=== PATIENT | male | born 1965 | race Caucasian/White ===

== ENCOUNTER 2017-02-02 08:55 | Emergency (ER) | payer MEDICAID ==
[~2017-02-02] VITALS: Ht 185.4 cm; Wt 74.8 kg
[~2017-02-02 08:55] MED LIST: LORTAB 5/500 501 TAB PO; MEDROL 4MG. DOSE4 MG PO; NOMEDS XX; ULTRAM50 MG PO
--- NOTE | 2017-02-02 09:13 | Urgent Treatment Center Report ---
History of Present Issue Date/Time Seen by Provider 02/02/17 0907 Visit Reason Pt arrived:Walked Presenting Problem:PT STATES PAIN TO R FOOT ARCH/HEEL THAT BEGAN ABOUT A MONTH AGO AND HAS GOTTEN WORSE. DENIES INJURY. STATES PAIN WITH AMBULATION Location if Accident: Onset of symptoms date/time:/ or onset unknown for:MEDICAL HX UNKNOWN Have you (or family members/close friends) recently traveled outside the [place]? N If Yes, where/when: Have you had exposure to infectious disease within the past month? TB? Other? Specify: c/o right heel pain x 1 month progressively getting worse and now radiating to arch. No known injury. Bruising to arch x weeks. Getting harder to walk due to pain. Minimal to no relief w/ ice, heat, occasional ibuprofen. Denies ankle or leg pain. No N/T. Full ROM. Source patient Exam Limitations no limitations ALLERGIES Coded Allergies: No Known Allergies (10/07/15) Home Medications Reported Medications No Home Medications (NO HOME MEDICATIONS) 1 EACH XX ONCE History Medical History General CAD? No Angina: No OK: No Hypertension? No Hyperlipidemia? No CHF? No DVT? No PE? No COPD? No Asthma? No Anemia? No GERD? No Gastric ulcers? No GI Bleed? No Hernia? No Thyroid Problems? No Hypothyroidism? No CVA? No Seizures? No Diabetes? No Renal Insuffiency? No UTI? No Stones? No BPH? No GB Disease: No Nephritic Syndrome? No Asplenia? No Hepatitis? No Sickle Cell Disease? No Arthritis? No Migraines? No Cataracts? No Glaucoma? No MRSA? No HIV? No TB? No Anxiety? No Depression? No Cancer? No Immunization HX DT/Tetanus 5-10 YRS Surgical Hx Previous Surgery?Y Hernia Repair L FOREARM Social History Smoking Hx Smoker: Current Every Day Smoker Tobacco: Yes Type Cigarettes Packs/day < 1 Pack Alcohol Alcohol: Yes Review of Systems All Other Systems Reviewed and Negative Constitutional denies chills, denies fever, denies malaise, denies weakness Musculoskeletal see HPI Skin see HPI Psychiatric/Neurological see HPI Physical Exam Vital Signs Vital Signs Date Time Temp Pulse Resp B/P Pulse O2 O2 Flow FiO2 Ox Delivery Rate 02/02 0904 97.8 63 18 170/93 96 General Appearance no apparent distress, seated in chair in exam room Respiratory Status No: respiratory distress. Cardiovascular no peripheral edema Peripheral Pulses Pulses normal Yes (pedal) Back gait abnormality (favoring right foot) Extremities normal range of motion (rt digits, ankle, knee), normal inspection ( rt ankle, leg), ecchymosis plantar surface rt arch, otherwise normal appearance, tenderness plantar surface rt heel and arch Strength 5 Lower Ext (L), 5 Lower Ext (R) Neurologic alert, no motor/sensory deficits Skin warm/dry, ecchymosis rt arch, see extremity Medical Decision Making LABS/Meds/Orders Pt receiving controlled substance in ED? No Results/Orders Orders Procedure Date/time Status FOOT-RT-3 VIEWS 02/02 919 Active XRAY/CT/US XRAY/CT/US XRAY foot (right) XR interpretation by reviewed by me (w/ Dr. Flores, JOSE GIVENS), discussed w/ radiologist (Dr. Bustamante) Xray Results normal/NAD (in foot, abnrml distal tib/fib) Comment Discussed w/ Dr. Bustamante, Radiologist. Compared to 2013 xrays. Area of concern looks more benign now compared to 2013. Suggest d/t old injury and of no concern. Departure Departure Time of Disposition 1000 Disposition DC Home or Self Care(routine) Clinical Impression Primary Impression: Pain of right heel Condition STABLE Referrals REGINALDO NOLAND DPM Already schedule your appt. February 23 at 1245 [facility]. Seek treatment immediately for new or worsening symptoms that occur before then. Patient Instructions DI for Plantar Fasciitis Additional Instructions Discussed possibly plantar fascitis. rest Ice compress elevate ibuprofen 600-800mg three times a day w/ meals Add arch/heel support to shoes Discharge Counseling Counseled pt/family regarding diagnosis, test results, medications/RX, home care, follow up needs at 1026
[2017-02-02 10:12] VITALS: BP 170/93
--- NOTE | 2017-02-02 11:57 | RADIOLOGY REPORT PS360 ---
FOOT-RT-3 VIEWS HISTORY: heel and now arch pain w/ bruising x 1 month ORDERING PHYSICIAN: FRANCOISE SOTO APRN PATIENT AGE: 51 years COMPARISON: None FINDINGS: No fracture or dislocation. No lytic or blastic change. There is normal mineralization.. The joint spaces are well-preserved. No significant degenerative/arthritic changes. No erosive changes evident. There is well circumscribed calcification of the interosseous ligament of the tib-fib distally consistent with old injury IMPRESSION: No acute finding
--- OUTSIDE RECORDS SUMMARY | 2017-02-08 05:13 | External Medical Summary Rpt ---
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 Name Role Phone Maurice Aguiar Unavailable Unavailable MAYA GIVENS, Maurice Aguiar III, MD Purpose Continuity of Care Document - 12-05-2012 through 2016 Problems Code Diagnosis DOS Provider Status 845.00 845.00 12-06-2012 Lalito SPRAIN OF [facility] E849.8 E849.8 12-06-2012 Lalito ACCIDENT IN [facility] E927.0 E927.0 12-06-2012 Lalito OVEREXERTIO [facility] SUDDEN STRENUOUS MOVEMENT Allergies, Adverse Reactions, Alerts Type Allergy to substance Adverse Reaction to Substance Substance Reaction Severity NO KNOWN ALLERGIES Unknown Unknown Medications Na ND Rx Da Fi Fi Am Da Di Ph RX Ph St me C No te ll ll ou ys ag ar # ys at rm s nt no ma ic us Or Da si cy ia de te s n re d AC 51 04 0 No ET 07 -1 AM 90 0- Lo IN 16 20 ng OP 19 13 er HE 9H N Ac W/ ti CO ve DE IN E #3 TA K IN 51 04 0 No DO 07 -1 ME 90 0- Lo TH 19 20 ng AC 02 13 er IN 0 Ac 25 ti ve MG CA PS UL E Ib 62 03 0 No up 58 -2 ro 40 7- Lo fe 74 20 ng n 60 13 er 40 1 0M Ac G ti Ta ve bl et HY [address] 07 -2 OC 90 7- Lo OD 78 20 ng ON 09 13 er E/ 9H AP Ac AP ti ve 5/ 50 0M G TA KE Vital Signs 12-20-2012 00:34 Name Value Interpretat Reference Comment ion Range Body 98.1 [degF] Temperature BP 94 mm[Hg] Diastolic BP Systolic 137 mm[Hg] Heart 73 /min Rate/Pulse O2% 96 % Respiratory 20 /min Rate 04-10-2013 00:33 Name Value Interpretat Reference Comment ion Range BP 94 mm[Hg] Diastolic BP Systolic 137 mm[Hg] Heart 73 /min Rate/Pulse O2% 96 % Respiratory 20 /min Rate 12-06-2012 01:31 Name Value Interpretat Reference Comment ion Range BP 87 mm[Hg] Diastolic BP Systolic 148 mm[Hg] Heart 70 /min Rate/Pulse O2% 98 % Respiratory 20 /min Rate 12-05-2012 23:53 Name Value Interpretat Reference Comment ion Range BP 80 mm[Hg] Diastolic BP Systolic 133 mm[Hg] Heart 105 /min Rate/Pulse O2% 95 % Respiratory 20 /min Rate Encounters Encounter Start End Date Code Location Performer Type Date Emergency NASEEM Fernandez MD (ER) 3 00:05 3 00:34 [facility] NASEEM Aguiar (ER) 3 23:49 3 01:32 [facility] Maurice Romero
--- OUTSIDE RECORDS SUMMARY | 2017-02-08 05:13 | External Medical Summary Rpt ---
Author Author , Organization [employer] Address Unknown Phone Unavailable Care Team Providers Care Bark Grinder Name Role Phone Maurice Aguiar Unavailable Unavailable MAYA GIVENS, Maurice Aguiar III, MD Purpose Continuity of Care Document - 12-05-2012 through 2016 Problems Code Diagnosis DOS Provider Status 845.00 845.00 12-06-2012 Lalito SPRAIN OF [facility] E849.8 E849.8 12-06-2012 Lalito ACCIDENT IN [facility] E927.0 E927.0 12-06-2012 Lalito OVEREXERTIO [facility] SUDDEN STRENUOUS MOVEMENT Allergies, Adverse Reactions, Alerts [...] Fernandez MD (ER) 3 00:05 3 00:34 [facility] NASEEM Aguiar (ER) 3 23:49 3 01:32 [facility] Maurice Romero
--- OUTSIDE RECORDS SUMMARY | 2017-02-08 05:14 | External Medical Summary Rpt ---
Author Author CELIA Whalen, CELIA Whalen Organization [employer] Address Unknown Phone Unavailable
--- OUTSIDE RECORDS SUMMARY | 2017-02-08 05:14 | External Medical Summary Rpt ---
Demographics Preferred Language Australian Marital Status Unknown Rastafarian Affiliation Unknown Race Unknown Ethnic Group Unknown Author Author , Organization [employer] Address Unknown Phone Unavailable Purpose Continuity of Care Document - through 2016 Immunization No patient found.
--- OUTSIDE RECORDS SUMMARY | 2017-02-08 05:14 | External Medical Summary Rpt ---
Author Author [employer] Organization [employer] Address Unknown Phone Unavailable Purpose Continuity of Care Document - through 2016
--- OUTSIDE RECORDS SUMMARY | 2017-02-08 05:14 | External Medical Summary Rpt ---
Demographics Preferred Language Malagasy Marital Status Unknown Adventist Affiliation Unknown Race Unknown Ethnic Group Unknown Author Author , Organization [employer] Address Unknown Phone Unavailable Purpose Continuity of Care Document - through 2016 Immunization No patient found.
== END 2017-02-02 10:12 | disposition home or self-care (01) ==
LOC: UTC 08:55
DX: M72.2 Plantar fascial fibromatosis (principal)